=== PATIENT | female | born 1970 | race Caucasian/White ===

== ENCOUNTER → 2022-01-25 | Outpatient (CLI) | payer OTHER ==
[~2022-01-25] MED LIST: GADOTERATE MEGLUMINE 10 MMOL/20 ML VIAL IVP ONE
== END | disposition home or self-care (01) ==
LOC: RADMN 14:45
PROVIDERS: ATTEND Internal Medicine Cardiovascular Disease
DX: R56.9 Unspecified convulsions (principal)
CPT/HCPCS: 70553; A9575